=== PATIENT | male | born 1965 | race Caucasian/White ===

== ENCOUNTER 2018-02-26 08:13 | Day surgery (SDC) | payer BC ==
[~2018-02-26 08:13] MED LIST: Lactated Ringers 1,000 ML IV SCH; Lidocaine 1% 4 ML ONE; Lidocaine 1%/Sod Bicarbonate in NS 8.4% 1 ML Syringe IDERM PRN; Propofol 200 MG/20 ML SDV ONE; Sodium Chloride 0.9% 10 ML Syringe FLUSH PRN; fentaNYL 100 MCG/2 ML SDV ONE
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
[2018-02-26] MEDS ORDERED: Propofol 200 MG/20 ML SDV ONE (10:20)
--- NOTE | 2018-02-26 10:37 | PCM.OPNOTE ---
- General Post-Op/Procedure Note Date of Surgery/Procedure: 02/26/18 Operative Procedure(s): egd with bx/ colonosocopy and polypectomy times 4 Pre Op Diagnosis: epigastric pain and rectal bleeding Post-Op Diagnosis: Same Anesthesia Technique: MAC Primary Surgeon: Macho Maya EBL in mLs: 0 Complications: None Condition: Good
--- NOTE | 2018-02-26 10:39 | PCM48HPAN ---
Post Anesthesia Note - EVALUATION WITHIN 48HRS OF ANESTHETIC Vital Signs in Normal Range: Yes Patient Participated in Evaluation: Yes Respiratory Function Stable: Yes Airway Patent: Yes Cardiovascular Function Stable: Yes Hydration Status Stable: Yes Pain Control Satisfactory: Yes Nausea and Vomiting Control Satisfactory: Yes Mental Status Recovered: Yes Pulse Rate: 73 SaO2: 93 Resp Rate: 20 Temperature: 36.6 C Blood Pressure: 116/80
--- NOTE | 2018-02-26 13:47 | OR ---
DATE OF OPERATION: 02/26/2018 SURGEON: Macho Maya MD PREOPERATIVE DIAGNOSIS: Rectal bleeding. POSTOPERATIVE DIAGNOSIS: Rectal bleeding. OPERATION PERFORMED: Colonoscopy to cecum with polypectomy x4. FINDINGS: Diminutive polyps in the ascending colon, 2 adjacent to each other, which were removed by cold biopsy forceps. A second polyp was in the proximal transverse colon that was removed by cautery snare completely. A third polyp was in the distal transverse colon that was removed completely by cautery snare. The fourth polyp was in the rectum, which was removed by cautery snare. There were no angiodysplasias, large tumor masses, ulcerations or diverticulum, but there were notable hemorrhoids. ANESTHESIA: Procedure done under IV sedation. DESCRIPTION OF PROCEDURE: The patient was taken to the endoscopy room and having been connected to monitoring equipment for upper GI endoscopy, IV sedation given, and this was continued for colonoscopy. He was placed in the left lateral position. Perianal area was inspected and was normal. Rectal exam showed good sphincter tone. A video Olympus colonoscope was introduced into the rectum and threaded up without problem to the cecum, where the appendicular orifice and ileocecal valve were noted. Prep was excellent. [place] cleansing score grade A. The scope was slowly withdrawn showing the cecum, ascending colon, transverse colon, descending colon, sigmoid colon, and rectum. Retroflexed view was done. Hemorrhoids were noted. Diminutive polyps, 2 [id number] were noted in the ascending colon. These were removed by cold biopsy forceps and both sent in one container. The second polyp was noted in the proximal transverse colon, and this was removed by cautery snare and retrieved. It was completely removed. The third polyp was in the distal transverse colon. This was also removed by cautery snare. It was diminutive. It was completely removed and retrieved. The fourth polyp was in the rectum. This was removed completely by cautery snare and sent to pathology. The patient tolerated the procedure, was sent to recovery room in a stable condition, and will be followed up in [facility]. ESTIMATED BLOOD LOSS: MMODAL /[id number]
--- NOTE | 2018-02-26 13:47 | OR ---
DATE OF OPERATION: 02/26/2018 SURGEON: Macho Myaa MD PREOPERATIVE DIAGNOSIS: Epigastric pain. POSTOPERATIVE DIAGNOSIS: Epigastric pain. OPERATION PERFORMED: Esophagogastroduodenoscopy with biopsy under IV sedation. FINDINGS: Inflammation of the duodenal bulb with old scarring. Biopsies were taken of this area. Antrum appeared normal. Biopsies were taken to look for H. pylori. Body, cardia, and fundus, stomach did not show any acute disease. J-maneuver did demonstrate a hiatal hernia. GE junction was located at 40 cm. There was a sliding hiatal hernia with irregular Z-line and biopsies of the GE junction were taken. The suggestion was that of chronic esophageal reflux. Rest of the esophagus was unremarkable. DESCRIPTION OF PROCEDURE: The patient was taken to the endoscopy room, placed in a supine position, connected to monitoring equipment, given IV sedation, placed in left lateral position. Bite-block was inserted. Video Olympus gastroscope placed in the posterior oropharynx, under direct vision, threaded past the cricopharyngeus down the esophagus into the stomach. The stomach was insufflated, and the scope passed through the pylorus to the second portion of the duodenum, slowly withdrawn. There was a normal second portion of the duodenum, pyloric channel, but the duodenal bulb showed inflammation, old scar consistent with duodenitis. Biopsies of the duodenal bulb was taken. Scope withdrawn to the antrum and the antrum, body, and cardia, stomach, and fundus were seen. J-maneuver was performed showing a hiatal hernia. Biopsies of the antrum were taken looking for H. pylori. Scope withdrawn to the GE junction, located at 40 cm, showed tongues of gastric mucosa interdigitating with the GE junction, suggestive of chronic reflux. Biopsies were taken of this area. Rest of the esophagus viewed as the scope withdrawn was normal. The patient tolerated the procedure. Specimen was sent to pathology in a labeled container and patient's IV sedation continued for colonoscopy. ANESTHESIA: ESTIMATED BLOOD LOSS: MMODAL /[id number]
== END 2018-02-26 11:15 | disposition home or self-care (01) ==
LOC: JD.SDS 08:13
PROVIDERS: ATTEND Surgery
DX: K62.5 Hemorrhage of anus and rectum (principal); D12.2 Benign neoplasm of ascending colon; D12.3 Benign neoplasm of transverse colon; K62.1 Rectal polyp; K29.70 Gastritis, unspecified, without bleeding; B96.81 Helicobacter pylori [H. pylori] as the cause of diseases classified elsewhere; K29.80 Duodenitis without bleeding; K64.9 Unspecified hemorrhoids; K44.9 Diaphragmatic hernia without obstruction or gangrene; K76.0 Fatty (change of) liver, not elsewhere classified; G89.29 Other chronic pain; M54.9 Dorsalgia, unspecified; E66.01 Morbid (severe) obesity due to excess calories; Z68.42 Body mass index [BMI] 45.0-49.9, adult; Z87.891 Personal history of nicotine dependence
CPT/HCPCS: 43239; 45380; 45385; J2001; J3010; J7120; 00813; J2704